=== PATIENT | female | born 1975 | race Caucasian/White ===

== ENCOUNTER 2017-02-20 11:49 | Emergency (ER) | payer OTHER ==
[~2017-02-20] VITALS: Ht 167.6 cm; Wt 77.1 kg
[~2017-02-20 11:49] MED LIST: AUGMENTIN 875875 MG PO; CLINDAMYCIN150 MG PO; FLONASE 0.05% 121 EA NAS; FLONASE0.05 MG/AC NS; HYDROCHLOROTHIA25 MG PO; HYDROCODONE BIT1 T11 PO; LEVOFLOXACIN500 MG PO; MEDROL DOSEPAK4 MG PO; MOTRIN600 MG PO; MOTRIN800 MG PO; NAPROSYN500 MG PO; NEURONTIN600 MG PO; NORFLEX100 MG PO; PYRIDIUM200 MG PO; SEROQUEL50 MG PO; TRAZODONE50 MG PO; ULTRAM50 MG PO; VIBRAMYCIN100 MG PO; ZOFRAN4 MG PO; [UNRECOGNIZED DRUG - OTHER] PO
[2017-02-20 13:39] LABS: BILIRUBIN NEGATIVE (NEGATIVE); BLOOD TRACE-INTACT (NEGATIVE); CLARITY SL CLOUDY (CLEAR); COLOR YELLOW (YELLOW); GLUCOSE NEGATIVE (NEGATIVE); KETONE NEGATIVE (NEGATIVE); LEUKO ESTERASE 3+ (NEGATIVE); NITRITE POSITIVE (NEGATIVE); PH 6.5 (5.0-9.0); SPECIFIC GRAVITY <= 1.005 (1.005-1.030); UROBILINOGEN 0.2 E.U./dl (0.2-1.0)
[2017-02-20 13:49] LABS: BACTERIA 4+; WBC 31-40 wbc/hpf (0-5)
[2017-02-20 14:00] LABS: ALBUMIN 3.4 gm/dl (3.1-4.5); ALKALINE PHOSPHATASE 69 U/L (45-117); BUN 8 mg/dl (7-24); CHLORIDE 105 mmol/L (98-107); CREATININE 0.87 mg/dL (0.55-1.02); LIPASE 61 U/L (73-393); SGOT/AST 24 IU/L (3-35); SGPT/ALT 23 U/L (12-78); SODIUM 137 mmol/L (136-145); TOTAL PROTEIN 7.1 gm/dL (6.4-8.2)
[2017-02-20 14:03] LABS: BETA-HCG, QUANT < 1.0 mIU/mL (1-3); TROPONIN I < 0.015 ng/ml (<0.045)
[2017-02-20 14:05] LABS: BASO % 0.4 % (0.0-1.0); EOS # 0.3 10*3/uL (0.0-0.4); EOS % 3.7 % (1.0-4.0); HEMATOCRIT 36.1 % (37.0-47.0); HEMOGLOBIN 11.7 g/dl (12.0-16.0); LYMPH % 28.1 % (27.0-41.0); MEAN CELL VOLUME 97.3 fl (81.0-99.0); MEAN CORPUSCULAR HGB 31.5 pg (27.0-31.0); MEAN CORPUSCULAR HGB CONC 32.4 g/dl (33.0-37.0); MEAN PLATELET VOLUME 11.7 fl (9.6-12.3); MONO # 0.7 10*3/uL (0.1-1.0); MONO % 9.2 % (3.0-9.0); NEUT # 4.1 10*3/uL (2.3-7.9); NEUT % 58.3 % (47.0-73.0); PLATELET COUNT AUTOMATED 159 10*3/uL (130-400); RED BLOOD COUNT 3.71 10*6/uL (4.10-5.10); RED CELL DISTRI WIDTH 12.6 % (0-14.5); WHITE BLOOD COUNT 7.1 10*3/uL (4.8-10.8)
[2017-02-20 14:13] LABS: ACT PARTIAL THROMBO TIME 25.3 SECONDS (20.8-31.5); INTERNATIONAL NORM RATIO 0.9 (2.0-3.5)
[2017-02-20] MEDS ORDERED: CIPRO500 MG PO (15:03)
[2017-02-20] MEDS ORDERED: PREDNISONE50 MG PO (15:03)
== END 2017-02-20 15:22 | disposition home or self-care (01) ==
LOC: ED 11:49
PROVIDERS: Emergency Medicine
DX: N39.0 Urinary tract infection, site not specified (principal); M79.642 Pain in left hand; M79.641 Pain in right hand; F17.200 Nicotine dependence, unspecified, uncomplicated; F10.10 Alcohol abuse, uncomplicated; Z88.8 Allergy status to other drugs, medicaments and biological substances; Z79.899 Other long term (current) drug therapy

== ENCOUNTER 2017-04-15 17:23 | Emergency (ER) | payer OTHER ==
[~2017-04-15] VITALS: Ht 167.6 cm; Wt 77.1 kg
[~2017-04-15 17:23] MED LIST changes: +CIPRO500 MG PO; +PREDNISONE50 MG PO
[2017-04-15 18:15] LABS: BILIRUBIN NEGATIVE (NEGATIVE); BLOOD TRACE-INTACT (NEGATIVE); CLARITY SL CLOUDY (CLEAR); COLOR YELLOW (YELLOW); GLUCOSE NEGATIVE (NEGATIVE); KETONE NEGATIVE (NEGATIVE); LEUKO ESTERASE NEGATIVE (NEGATIVE); NITRITE NEGATIVE (NEGATIVE); SPECIFIC GRAVITY 1.025 (1.005-1.030)
[2017-04-15 18:20] LABS: BACTERIA 2+
[2017-04-15 18:49] LABS: BASO % 0.5 % (0.0-1.0); EOS # 0.2 10*3/uL (0.0-0.4); EOS % 4.2 % (1.0-4.0); HEMATOCRIT 32.2 % (37.0-47.0); HEMOGLOBIN 11.1 g/dl (12.0-16.0); LYMPH # 1.7 10*3/uL (1.3-4.4); LYMPH % 30.1 % (27.0-41.0); MEAN CELL VOLUME 93.9 fl (81.0-99.0); MEAN CORPUSCULAR HGB 32.4 pg (27.0-31.0); MEAN CORPUSCULAR HGB CONC 34.5 g/dl (33.0-37.0); MEAN PLATELET VOLUME 12.1 fl (9.6-12.3); MONO # 0.4 10*3/uL (0.1-1.0); MONO % 6.4 % (3.0-9.0); NEUT # 3.2 10*3/uL (2.3-7.9); NEUT % 58.4 % (47.0-73.0); PLATELET COUNT AUTOMATED 160 10*3/uL (130-400); RED BLOOD COUNT 3.43 10*6/uL (4.10-5.10); RED CELL DISTRI WIDTH 12.6 % (0-14.5); WHITE BLOOD COUNT 5.5 10*3/uL (4.8-10.8)
[2017-04-15 19:04] LABS: ALBUMIN 3.6 gm/dl (3.1-4.5); ALKALINE PHOSPHATASE 62 U/L (45-117); BUN 15 mg/dl (7-24); CHLORIDE 107 mmol/L (98-107); CREATININE 0.93 mg/dL (0.55-1.02); SGOT/AST 59 IU/L (3-35); SGPT/ALT 75 U/L (12-78); SODIUM 139 mmol/L (136-145); TOTAL PROTEIN 6.5 gm/dL (6.4-8.2)
[2017-04-15] MEDS ORDERED: MEDROL DOSEPAK4 MG PO (19:30)
[2017-04-15] MEDS ORDERED: SEPTDS PO (19:30)
[2017-04-17] MEDS ORDERED: SEPTDS PO (11:25)
[2017-04-17] MEDS ORDERED: MEDROL DOSEPAK4 MG PO (11:25)
== END 2017-04-15 19:32 | disposition home or self-care (01) ==
LOC: ED 17:23
PROVIDERS: Nurse Practitioner Family
DX: N39.0 Urinary tract infection, site not specified (principal); F17.200 Nicotine dependence, unspecified, uncomplicated; Z79.899 Other long term (current) drug therapy

== ENCOUNTER 2019-04-02 23:58 | Emergency (ER) | payer OTHER ==
[~2019-04-02] VITALS: Ht 167.6 cm; Wt 68.0 kg
[~2019-04-02 23:58] MED LIST changes: +ELIMITE 5%60 GM T; +SEPTDS PO
== END 2019-04-03 02:50 | disposition home or self-care (01) ==
LOC: ED 23:58
DX: R51 Headache (principal); F17.200 Nicotine dependence, unspecified, uncomplicated; Z91.048 Other nonmedicinal substance allergy status; Z79.899 Other long term (current) drug therapy

== ENCOUNTER 2019-04-03 07:44 | Inpatient (IN) | payer OTHER ==
[~2019-04-03] VITALS: Ht 170.1 cm; Wt 66.7 kg
[2019-04-03 07:48] VITALS: BP 133/75
[2019-04-03 08:23] LABS: BASO % 0.8 % (0.0-1.0); EOS # 0.2 10*3/uL (0.0-0.4); EOS % 3.6 % (1.0-4.0); HEMOGLOBIN 12.1 g/dl (12.0-16.0); LYMPH # 1.7 10*3/uL (1.3-4.4); LYMPH % 35.1 % (27.0-41.0); MEAN CELL VOLUME 96.4 fl (81.0-99.0); MEAN CORPUSCULAR HGB 31.5 pg (27.0-31.0); MEAN CORPUSCULAR HGB CONC 32.7 g/dl (33.0-37.0); MEAN PLATELET VOLUME 11.5 fl (9.6-12.3); MONO # 0.4 10*3/uL (0.1-1.0); MONO % 7.7 % (3.0-9.0); NEUT # 2.6 10*3/uL (2.3-7.9); NEUT % 52.4 % (47.0-73.0); PLATELET COUNT AUTOMATED 212 10*3/uL (130-400); RED BLOOD COUNT 3.84 10*6/uL (4.10-5.10); RED CELL DISTRI WIDTH 12.8 % (0-14.5)
[2019-04-03 08:37] LABS: ALBUMIN 3.1 gm/dl (3.1-4.5); ALKALINE PHOSPHATASE 78 U/L (45-117); BUN 9 mg/dl (7-24); CHLORIDE 106 mmol/L (98-107); CREATININE 1.05 mg/dL (0.55-1.02); POTASSIUM 3.9 mmol/L (3.5-5.1); SGOT/AST 78 IU/L (3-35); SGPT/ALT 142 U/L (12-78); SODIUM 137 mmol/L (136-145); TOTAL PROTEIN 6.8 gm/dL (6.4-8.2)
--- NOTE | 2019-04-03 08:57 | NUR ---
PT WITH LINDY CHARGE LPN FOR ADMISSION
--- NOTE | 2019-04-03 08:57 | NUR ---
[place] STAFF SPOKE WITH PATIENT ABOUT [facility]. PATIENT MEETS [facility]. [place] STAFF WILL FOLLOW UP WITH PATIENT WITH REFERRAL OPTIONS FOR AFTERCARE. ARTEMIO ROTHMAN B.A. TAPE CALENDER
[2019-04-03 08:59] VITALS: BP 117/68
[2019-04-03 10:20] VITALS: BP 131/65
--- NOTE | 2019-04-03 10:20 | NUR ---
A 43, admitted to 5E, under the services of MICKY Ann DO with a diagnosis of Substance Abuse. Chief complaint is Substance Abuse. Patient arrived via stretcher from ER. Monitor applied. Initial assessment completed. Vital signs taken and recorded. MICKY ANN DO notified of admission to the unit. Orders received. See assessment for past medical history, medications and allergies. Patient and/or family oriented to unit. [address] visitation policy reviewed. Clothing/patient valuable form completed. EUGENE LAMBERT
--- NOTE | 2019-04-03 10:20 | NUR ---
Patient showing signs of withdrawl. See new orders.
[2019-04-03 11:02] LABS: INTERNATIONAL NORM RATIO 0.9 (2.0-3.5)
--- NOTE | 2019-04-03 11:04 | NUR ---
Notified Lindsay Justin CNP of patient updated med list and wounds to RLE and healed wound to LLE. Lindsay to follow up at bedside.
[2019-04-03 11:07] LABS: BETA-HCG, QUANT < 1.0 mIU/mL (1-3); ETHYL ALCOHOL < 3.0 mg/dl (<3)
[2019-04-03 11:08] LABS: BILIRUBIN NEGATIVE (NEGATIVE); BLOOD TRACE-INTACT (NEGATIVE); CLARITY SL CLOUDY (CLEAR); COLOR YELLOW (YELLOW); GLUCOSE NEGATIVE (NEGATIVE); KETONE NEGATIVE (NEGATIVE); LEUKO ESTERASE 2+ (NEGATIVE); NITRITE POSITIVE (NEGATIVE); UROBILINOGEN 0.2 E.U./dl (0.2-1.0)
[2019-04-03 11:21] LABS: URINE AMPHETAMINES > 1000 (1000ng/ml); URINE BARBITURATES < 200 (200ng/ml); URINE BENZODIAZEPINES < 200 (200ng/ml); URINE CANNABINOIDS (THC) < 50 (50ng/ml); URINE COCAINE < 300 (300ng/ml); URINE METHADONE < 300 (300ng/ml); URINE OPIATES < 300 (300ng/ml)
[2019-04-03 11:23] LABS: URINE PHENCYCLIDINE < 25 (25ng/ml)
[2019-04-03 11:29] LABS: BACTERIA 3+
[2019-04-03 12:00] VITALS: BP 132/70
--- NOTE | 2019-04-03 12:10 | NUR ---
Robaxin given for patient c/o muscle spasms and Vistaril given for c/o anxiety. Will monitor.
--- NOTE | 2019-04-03 13:00 | NUR ---
Robaxin and Vistaril effective. Patient asleep with respirations >12.
[2019-04-03 16:00] VITALS: BP 121/74
--- NOTE | 2019-04-03 19:32 | NUR ---
NEW NICOTINE PATCH APPLIED TO PATIENT'S LEFT UPPER ARM D/T THE FIRST PATCH CAME OFF IN THE SHOWER AND PATIENT COULDN'T FIND IT. BAND-AIDS ALSO APPLIED TO RIGHT CALF AREA ON WOUNDS. DENIES COMPLAINTS OF PAIN OR DISCOMFORT AT THIS TIME. WILL CONTINUE TO MONITOR. CALL LIGHT IN REACH.
[2019-04-03 20:00] VITALS: BP 109/62
[2019-04-04] VITALS: BP 108/61
[2019-04-04 06:52] LABS: ALKALINE PHOSPHATASE 66 U/L (45-117); BUN 11 mg/dl (7-24); CHLORIDE 108 mmol/L (98-107); CREATININE 0.99 mg/dL (0.55-1.02); POTASSIUM 4.1 mmol/L (3.5-5.1); SGOT/AST 83 IU/L (3-35); SGPT/ALT 140 U/L (12-78); SODIUM 141 mmol/L (136-145); TOTAL PROTEIN 6.5 gm/dL (6.4-8.2)
[2019-04-04 08:00] VITALS: BP 118/72
[2019-04-04 12:00] VITALS: BP 118/83
[2019-04-04 16:00] VITALS: BP 125/76
[2019-04-04 20:00] VITALS: BP 112/67
[2019-04-05] VITALS: BP 117/71
--- NOTE | 2019-04-05 00:28 | NUR ---
Patient resting quietly with no c/o discomfort. Respirations easy and regular. Vital signs stable. No overt distress. MAYA CHACON
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
[2019-04-05 08:00] VITALS: BP 110/66
--- NOTE | 2019-04-05 08:53 | NUR ---
Dr. Pina notified of wound care recommendations stated give to them at discharge planning.
--- NOTE | 2019-04-05 08:54 | NUR ---
Follow up with Dr. Salmeron in wound care clinic on 04/09/19 at 2:30pm, call [phone] with any concerns
--- NOTE | 2019-04-05 09:35 | NUR ---
C/O RESTLESS LEGS AND CRAMPS. GIVEN ROBAXIN AND REQUIP. WILL CONT TO MONITOR. CALL LIGHT IN REACH.
--- NOTE | 2019-04-05 10:35 | NUR ---
ROBAXIN AND REQUIP EFF FOR C/O RESTLESS LEGS AND CRAMPING. WILL CONT TO MONITOR. CALL LIGHT IN REACH.
[2019-04-05 12:00] VITALS: BP 122/61
--- NOTE | 2019-04-05 13:05 | NUR ---
[place] STAFF SPOKE WITH PATIENT. PATIENT REPORTS THAT SHE IS HOMELESS. PATIENT REPORTS THAT SHE CONTACTED [facility] IN [place] FOR THE HOMELESS RESIDENTIAL AND THEY WANT HER TO CONTACT THEM IN THE MORNING FOR A POSSIBLE OPEN BED. [place] STAFF WILL SET UP TRANSPORTATION THROUGH HER INSURANCE. PATIENT IS WANTING TO FOLLOW UP WITH [facility] IN [place] FOR HER AFTERCARE PLAN. PATIENT STATED THAT SHE WILL SET UP HER APPOINTMENT DUE TO TRANSPORATION ISSUES. [place] STAFF WILL ALSO PROVIDE PATIENT WITH THE NUMBER FOR [facility] TRANSPORTATION. ARTEMIO ROTHMAN B.A. INSTRUCTOR CREELER
[2019-04-05 16:00] VITALS: BP 123/67
[2019-04-05 20:00] VITALS: BP 111/62
[2019-04-06] VITALS: BP 117/69
--- NOTE | 2019-04-06 | NUR ---
PATIENT SLEEPIGN. EASY REGULAR RESPIRATIONS ON ROOM AIR. CALL LIGHT WITHINREACH.
[2019-04-06 06:17] LABS: BASO % 0.8 % (0.0-1.0); EOS # 0.3 10*3/uL (0.0-0.4); EOS % 6.1 % (1.0-4.0); HEMATOCRIT 36.8 % (37.0-47.0); HEMOGLOBIN 11.8 g/dl (12.0-16.0); LYMPH # 2.2 10*3/uL (1.3-4.4); LYMPH % 46.3 % (27.0-41.0); MEAN CELL VOLUME 96.3 fl (81.0-99.0); MEAN CORPUSCULAR HGB 30.9 pg (27.0-31.0); MEAN CORPUSCULAR HGB CONC 32.1 g/dl (33.0-37.0); MEAN PLATELET VOLUME 12.4 fl (9.6-12.3); MONO # 0.4 10*3/uL (0.1-1.0); MONO % 8.8 % (3.0-9.0); NEUT # 1.8 10*3/uL (2.3-7.9); NEUT % 36.9 % (47.0-73.0); NUCLEATED RED BLOOD CELL 0.6 % (0.0-0.0); PLATELET COUNT AUTOMATED 202 10*3/uL (130-400); RED BLOOD COUNT 3.82 10*6/uL (4.10-5.10); RED CELL DISTRI WIDTH 12.8 % (0-14.5); WHITE BLOOD COUNT 4.8 10*3/uL (4.8-10.8)
[2019-04-06] MEDS ORDERED: NITROFURANTOIN100 M9 PO (07:48)
[2019-04-06 08:00] VITALS: BP 119/66
[2019-04-06 08:05] LABS: HEPATITIS B SURFACE AG Negative (Negative)
[2019-04-06 08:38] LABS: HEPATITIS C VIRUS ANTIBODY >11.0 s/co (0.0-0.9)
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
--- NOTE | 2019-04-06 10:21 | NUR ---
Discharge instructions reviewed with patient/family. Patient receptive and verbalizes understanding. Follow-up care arranged. Written instructions given to patient/family. CHATA DORSEY
== END 2019-04-06 10:21 | disposition home or self-care (01) | DRG 861 ==
LOC: ED 07:44 → 5E 08:51 → EDHOLD 08:51 → 5E 08:58
PROVIDERS: Emergency Medicine; Registered Nurse; ADMIT Internal Medicine
DX: Z79.899 Other long term (current) drug therapy (principal); F11.23 Opioid dependence with withdrawal; N17.0 Acute kidney failure with tubular necrosis; E44.0 Moderate protein-calorie malnutrition; F17.210 Nicotine dependence, cigarettes, uncomplicated; I89.0 Lymphedema, not elsewhere classified; G62.9 Polyneuropathy, unspecified; F19.10 Other psychoactive substance abuse, uncomplicated; R74.0 Nonspecific elevation of levels of transaminase and lactic acid dehydrogenase [LDH]; Z82.49 Family history of ischemic heart disease and other diseases of the circulatory system; Z87.442 Personal history of urinary calculi

== ENCOUNTER → 2019-04-18 | Outpatient (CLI) | payer OTHER ==
[~2019-04-18] MED LIST changes: +NITROFURANTOIN100 M9 PO
[2019-04-18 15:00] LABS: ALBUMIN 3.4 gm/dl (3.1-4.5); ALKALINE PHOSPHATASE 81 U/L (45-117); BUN 10 mg/dl (7-24); CHLORIDE 107 mmol/L (98-107); CREATININE 1.04 mg/dL (0.55-1.02); SGOT/AST 79 IU/L (3-35); SGPT/ALT 160 U/L (12-78); SODIUM 139 mmol/L (136-145); TOTAL PROTEIN 7.3 gm/dL (6.4-8.2)
[2019-04-19 07:06] LABS: HEPATITIS B SURFACE AG Negative (Negative)
[2019-04-19 08:08] LABS: RHEUMATOID ARTHRITIS FACTOR 23.2 IU/mL (0.0-13.9)
[2019-04-19 16:05] LABS: ANTI-SMOOTH MUSCLE ANTIBODY 10 Units (0-19)
[2019-04-23 09:45] LABS: HEPATITIS C VIRUS ANTIBODY >11.0 s/co (0.0-0.9)
== END | disposition home or self-care (01) ==
LOC: LAB 14:08
PROVIDERS: Family Medicine
DX: M79.10 Myalgia, unspecified site (principal); E55.9 Vitamin D deficiency, unspecified; F43.12 Post-traumatic stress disorder, chronic; R94.5 Abnormal results of liver function studies

== ENCOUNTER 2019-10-14 19:23 | Emergency (ER) | payer OTHER ==
[~2019-10-14] VITALS: Ht 167.6 cm; Wt 68.0 kg
[2019-10-14 20:49] LABS: ALBUMIN 3.1 gm/dl (3.1-4.5); ALKALINE PHOSPHATASE 89 U/L (45-117); BUN 10 mg/dl (7-24); CHLORIDE 106 mmol/L (98-107); CREATININE 0.95 mg/dL (0.55-1.02); SGOT/AST 106 IU/L (3-35); SGPT/ALT 181 U/L (12-78); SODIUM 135 mmol/L (136-145); TOTAL PROTEIN 7.2 gm/dL (6.4-8.2)
[2019-10-14 21:46] LABS: BILIRUBIN NEGATIVE (NEGATIVE); BLOOD NEGATIVE (NEGATIVE); CLARITY CLEAR (CLEAR); COLOR YELLOW (YELLOW); GLUCOSE NEGATIVE (NEGATIVE); KETONE NEGATIVE (NEGATIVE)
[2019-10-14 21:47] LABS: LEUKO ESTERASE TRACE (NEGATIVE); NITRITE POSITIVE (NEGATIVE); UROBILINOGEN 0.2 E.U./dl (0.2-1.0)
[2019-10-14 21:48] LABS: BACTERIA 4+; EPITHELIAL CELLS 41-50; WBC 0-2 wbc/hpf (0-5)
== END 2019-10-14 22:47 | disposition home or self-care (01) ==
LOC: ED 19:23
PROVIDERS: Physician Assistant
DX: M54.16 Radiculopathy, lumbar region (principal); Z72.0 Tobacco use

== ENCOUNTER → 2020-02-11 | Outpatient (CLI) | payer OTHER ==
[~2020-02-11] MED LIST changes: +Orphenadrine C100 MG PO; +SUBOXONE 8 MG-1 EACH SL
== END | disposition home or self-care (01) ==
LOC: MRI 09:00
PROVIDERS: ATTEND Neurological Surgery
DX: M51.36 Other intervertebral disc degeneration, lumbar region (principal); M48.061 Spinal stenosis, lumbar region without neurogenic claudication; M43.06 Spondylolysis, lumbar region; Z98.890 Other specified postprocedural states

== ENCOUNTER 2020-03-04 11:46 | Emergency (ER) | payer OTHER ==
[~2020-03-04] VITALS: Ht 167.6 cm; Wt 68.0 kg
[~2020-03-04 11:46] MED LIST changes: -Orphenadrine C100 MG PO; -SUBOXONE 8 MG-1 EACH SL
[2020-03-04 12:45] LABS: BASO # 0.1 10*3/uL (0.0-0.1); BASO % 0.6 % (0.0-1.0); EOS # 0.2 10*3/uL (0.0-0.4); EOS % 2.4 % (1.0-4.0); HEMATOCRIT 33.9 % (37.0-47.0); LYMPH # 2.4 10*3/uL (1.3-4.4); LYMPH % 23.1 % (27.0-41.0); MEAN CELL VOLUME 90.6 fl (81.0-99.0); MEAN CORPUSCULAR HGB 28.1 pg (27.0-31.0); MEAN PLATELET VOLUME 9.9 fl (9.6-12.3); MONO # 0.4 10*3/uL (0.1-1.0); MONO % 3.4 % (3.0-9.0); NEUT # 7.1 10*3/uL (2.3-7.9); NEUT % 69.8 % (47.0-73.0); PLATELET COUNT AUTOMATED 522 10*3/uL (130-400); RED BLOOD COUNT 3.74 10*6/uL (4.10-5.10); RED CELL DISTRI WIDTH 14.2 % (0-14.5); WHITE BLOOD COUNT 10.2 10*3/uL (4.8-10.8)
[2020-03-04 13:01] LABS: ALBUMIN 2.9 gm/dl (3.1-4.5); ALKALINE PHOSPHATASE 139 U/L (45-117); BUN 16 mg/dl (7-24); CHLORIDE 101 mmol/L (98-107); POTASSIUM 3.7 mmol/L (3.5-5.1); SGOT/AST 6 IU/L (3-35); SGPT/ALT 6 U/L (12-78); SODIUM 133 mmol/L (136-145); TOTAL PROTEIN 9.3 gm/dL (6.4-8.2)
== END 2020-03-04 12:57 | disposition left against medical advice (07) ==
LOC: ED 11:46
PROVIDERS: Nurse Practitioner Family
DX: M54.5 Low back pain (principal); G89.29 Other chronic pain; F32.9 Major depressive disorder, single episode, unspecified; Z79.899 Other long term (current) drug therapy

== ENCOUNTER 2020-03-12 05:21 | Emergency (ER) | payer OTHER ==
[~2020-03-12] VITALS: Ht 167.6 cm; Wt 68.0 kg
[2020-03-12] MEDS ORDERED: SUBOXONE 8 MG-1 EACH SL (05:26)
[2020-03-12] MEDS ORDERED: Orphenadrine C100 MG PO (07:42)
== END 2020-03-12 07:58 | disposition home or self-care (01) ==
LOC: ED 05:21
DX: M48.061 Spinal stenosis, lumbar region without neurogenic claudication (principal); M54.32 Sciatica, left side; Z79.899 Other long term (current) drug therapy; Z88.8 Allergy status to other drugs, medicaments and biological substances

== ENCOUNTER → 2022-09-08 | Outpatient (CLI) | payer OTHER ==
[~2022-09-08] MED LIST changes: +Orphenadrine C100 MG PO; +SUBOXONE 8 MG-1 EACH SL
== END | disposition home or self-care (01) ==
LOC: LAB 15:48
PROVIDERS: ATTEND Family Medicine
DX: Z02.1 Encounter for pre-employment examination (principal)

== ENCOUNTER 2023-02-07 11:06 | Emergency (ER) | payer OTHER ==
[~2023-02-07] VITALS: Ht 162.5 cm; Wt 72.6 kg
[2023-02-07] MEDS ORDERED: ZYRTEC10 M2 PO (11:26)
[2023-02-07] MEDS ORDERED: PRILOSEC20 M1 PO (11:27)
[2023-02-07] MEDS ORDERED: IBU800 M2 PO (11:28)
[2023-02-07] MEDS ORDERED: FLONASE ALLERG9.9 ML NAS (11:28)
[2023-02-07] MEDS ORDERED: LASIX20 MG PO (11:29)
[2023-02-07 11:58] LABS: URINE AMPHETAMINES Negative (1000ng/ml); URINE BARBITURATES Negative (200ng/ml); URINE BENZODIAZEPINES Negative (200ng/ml); URINE CANNABINOIDS (THC) Negative (50ng/ml); URINE COCAINE Negative (300ng/ml); URINE METHADONE Negative (300ng/ml); URINE OPIATES Negative (300ng/ml); URINE PHENCYCLIDINE Negative (25ng/ml)
== END 2023-02-07 12:25 | disposition home or self-care (01) ==
LOC: ED 11:06
PROVIDERS: Emergency Medicine
DX: R00.2 Palpitations (principal); T40.601A Poisoning by unspecified narcotics, accidental (unintentional), initial encounter; R51.9 Headache, unspecified; R68.2 Dry mouth, unspecified; F32.A Depression, unspecified; Z87.442 Personal history of urinary calculi; Z88.8 Allergy status to other drugs, medicaments and biological substances; Z72.0 Tobacco use; Y92.009 Unspecified place in unspecified non-institutional (private) residence as the place of occurrence of the external cause

== ENCOUNTER 2023-02-11 05:02 | Emergency (ER) | payer OTHER ==
[~2023-02-11] VITALS: Wt 81.0 kg
[~2023-02-11 05:02] MED LIST changes: +FLONASE ALLERG9.9 ML NAS; +IBU800 M2 PO; +LASIX20 MG PO; +PRILOSEC20 M1 PO; +ZYRTEC10 M2 PO
[2023-02-11 06:23] LABS: BILIRUBIN Negative (Negative); BLOOD Trace-Lysed (Negative); CLARITY Clear (Clear); COLOR Yellow (Yellow); GLUCOSE Negative (Negative); KETONE Negative (Negative); LEUKO ESTERASE 1+ (Negative); NITRITE Positive (Negative); SPECIFIC GRAVITY 1.015 (1.001-1.030); UROBILINOGEN 0.2 E.U./dl (0.0-1.0)
[2023-02-11 06:27] LABS: BASO % 0.5 % (0.0-1.0); EOS # 0.2 10*3/uL (0.0-0.4); EOS % 1.8 % (1.0-4.0); HEMATOCRIT 34.1 % (37.0-47.0); LYMPH # 1.3 10*3/uL (1.3-4.4); LYMPH % 14.3 % (27.0-41.0); MEAN CELL VOLUME 97.4 fl (81.0-99.0); MEAN CORPUSCULAR HGB 33.1 pg (27.0-31.0); MEAN PLATELET VOLUME 12.6 fl (9.6-12.3); MONO # 0.4 10*3/uL (0.1-1.0); MONO % 4.7 % (3.0-9.0); NEUT # 6.8 10*3/uL (2.3-7.9); NEUT % 78.4 % (47.0-73.0); PLATELET COUNT AUTOMATED 187 10*3/uL (130-400); RED CELL DISTRI WIDTH 11.9 % (0-14.5); WHITE BLOOD COUNT 8.7 10*3/uL (4.8-10.8)
[2023-02-11 06:41] LABS: ACT PARTIAL THROMBO TIME 22.2 SECONDS (20.0-32.1)
[2023-02-11 06:54] LABS: ALKALINE PHOSPHATASE 59 U/L (46-116); BUN 13 mg/dl (9-23); CHLORIDE 103 mmol/L (98-107); ETHYL ALCOHOL 3.6 mg/dl (<3); LIPASE 27 U/L (12-53); POTASSIUM 2.7 mmol/L (3.4-5.1); SGPT/ALT 68 U/L (5-49); TOTAL PROTEIN 6.2 gm/dL (6.0-8.0)
[2023-02-11 06:57] LABS: BACTERIA 4+; URINE AMPHETAMINES Negative (1000ng/ml); URINE BARBITURATES Negative (200ng/ml); URINE BENZODIAZEPINES Negative (200ng/ml); URINE CANNABINOIDS (THC) Negative (50ng/ml); URINE COCAINE Negative (300ng/ml); URINE METHADONE Negative (300ng/ml); URINE OPIATES Positive (300ng/ml); URINE PHENCYCLIDINE Negative (25ng/ml); WBC 21-30 wbc/hpf (0-5)
== END 2023-02-11 11:07 | disposition home or self-care (01) ==
LOC: ED 05:02 → EDBD 05:07 → ED 05:07
PROVIDERS: Internal Medicine
DX: T40.601A Poisoning by unspecified narcotics, accidental (unintentional), initial encounter (principal); F32.A Depression, unspecified; Z87.442 Personal history of urinary calculi; Z88.8 Allergy status to other drugs, medicaments and biological substances; F17.290 Nicotine dependence, other tobacco product, uncomplicated; Y92.009 Unspecified place in unspecified non-institutional (private) residence as the place of occurrence of the external cause